=== PATIENT | female | born 1955 | race Caucasian/White ===

== ENCOUNTER 2019-04-16 07:24 | Day surgery (SDC) ==
--- NOTE | 2019-04-14 13:22 | EKG Report ---
Test Performed on : 04/14/2019 1:19:44 PM Test Reason : pre op Blood Pressure : / mmHG Vent. Rate : 069 BPM Atrial Rate : 069 BPM P-R Int : 144 ms QRS Dur : 068 ms QT Int : 388 ms P-R-T Axes : 066 057 053 degrees QTc Int : 415 ms Normal sinus rhythm. Septal infarct , age undetermined Abnormal ECG When compared with ECG of 03-APR-2012 17:56, Septal infarct is now present Confirmed by Jensen Patrick MD ([id number]) on 04/19/2019 9:28:20 PM
[2019-04-16] MEDS ORDERED: PEPCID ONE (07:46)
[2019-04-16] MEDS ORDERED: REGLAN ONE (07:46)
[2019-04-16] MEDS ORDERED: LR 1,000 ML ONE ×2 (07:46→15:37)
[2019-04-16] MEDS ORDERED: VANCOMYCIN 1 GM/NS 1 GM/250 ML IVPB ONE (07:46)
[2019-04-16] MEDS ORDERED: VERSED ONE ×2 (10:24→10:33)
[2019-04-16] MEDS ORDERED: XYLOCAINE-MPF 2% ONE ×2 (10:25→10:33)
[2019-04-16] MEDS ORDERED: NAROPIN 0.5% ONE (10:25)
[2019-04-16] MEDS ORDERED: SODIUM CHLORIDE 0.9% 0 ML ONE (10:32)
[2019-04-16] MEDS ORDERED: FENTANYL ONE (10:33)
[2019-04-16] MEDS ORDERED: DIPRIVAN 1% ONE (10:33)
[2019-04-16] MEDS ORDERED: ZOFRAN IV PRN (12:42)
--- NOTE | 2019-04-16 13:17 | OPERATIVE NOTE ---
PROCEDURE DATE: 04/16/2019 POSTOPERATIVE DIAGNOSES: 1. Right lateral malleolus fracture. 2. Right deltoid tear. POSTOPERATIVE DIAGNOSES: 1. Right lateral malleolus fracture. 2. Right deltoid tear. PROCEDURES: 1. Right open reduction and internal fixation of the lateral malleolus. 2. Right deltoid repair. SURGEON: Dr. Edin Bal. ENGLISH DIVISION CHAIR: Daily Ibrahim NP, who was an integral part of the case, helping with the puri portions of the case, helping to increase our OR efficiency greatly. ANESTHESIA: General with LMA and preoperative popliteal block. TOURNIQUET TIME: Around a little over an hour. IMPLANTS: Medline 09/11 tubular plate and screws. DISPOSITION: To PACU, hemodynamically stable. INDICATION FOR PROCEDURE: Ms Griffin is a 63-year-old female who fractured her ankle while on a cruise ship. It sounds like they did a closed reduction there. [place] got [place], she went to the ER where it sounds like they had to do another closed reduction. She came to me about a week out. Discussed with her about operative intervention. She expressed understanding and wished to proceed. DESCRIPTION OF PROCEDURE: Ms. Griffin was identified in the preoperative holding area. Right ankle was marked as the correct surgical site. She was then wheeled to the operating room and placed supine on the operating table. All bony prominences were well padded. She was induced under general anesthesia. LMA was placed. Tourniquet was placed to the right thigh. Splint was taken off. There were some fracture blisters on that medial side. They are pretty small though. No fracture blisters laterally. Right lower extremity then prepped with chlorhexidine, gluconate scrub and then ChloraPrep, and draped in normal sterile fashion. Surgical pause was performed. We identified the correct patient, correct side, and the correct procedure. Preop antibiotics were given. Esmarch was used to exsanguinate the right lower extremity and tourniquet was inflated to 300 mmHg. I started with a lateral incision. Dissection was carried down to the bone, exposing the fracture, which was short oblique with a posterior spike. There also was a comminuted piece anteriorly that had a little bit of joint surface on it as well. So we got everything reduced including that anterior fragment which was pretty small, but a significant portion. I used a lag screw in the main oblique fracture fragment which is aligned everything together really well and then used a posterior plate, 3 screws proximally and 1 locking screw in that distal fragment to help control rotation. I then put one 2/7th screw in that anterior fragment that was comminuted and actually held it together really well. I then came on the medial side, made an incision. Dissection was carried down. The deltoid was torn. It was more of an intrasubstance tear. We ended up using 1 JuggerKnot suture anchor and then some bony tunnels. I repaired the deep deltoid first and really got our stability and then repaired the superficial deltoid next. I then backed all that up with 0 Vicryl suture and she was very stable at this point. External rotation stress test showed that we had really good stability. Final images were taken. Everything was closed in a layered fashion, 0 Vicryl for the deep layer, 2-0 Vicryl for the subcutaneous and nylon on the skin. Adaptic, 4x4s, ABD, soft roll, and a posterior splint was applied. Tourniquet was let down. Patient had good capillary refill return to the toes. She was then wheeled from general anesthesia, moved to her own bed and taken to PACU in stable condition. PLAN: Postop she will be nonweightbearing to the right lower extremity and I will see her in a week in clinic. cc: Edin Bal MD
[2019-04-16] MEDS ORDERED: LANOXIN IV ONE (13:32)
[2019-04-16 14:01] LABS: MCH 28.9 PG (27-31); MCHC 31.1 g/dL (33-37); MPV 9.7 FL (7.4-10.4); RBC 4.84 XMIL (4.2-5.4); RDW 14.1 % (11.5-14.5); WBC 15.49 X1000 (4.8-10.8)
[2019-04-16 14:15] LABS: AGAP 13; BUN 20 mg/dL (8-22); CALCIUM 9.1 mg/dL (8.8-10.2); CHLORIDE 101 mmol/L (98-107); COSMO 280; CREATININE 0.8 mg/dL (0.5-0.9); ESTIMATED GFR > 60; GLUCOSE 103 mg/dL (70-104); MAGNESIUM 1.8 mg/dL (1.5-2.7); PHOSPHORUS 3.3 mg/dL (2.7-4.5); POTASSIUM 4.4 mmol/L (3.5-5.1); SODIUM 139 mmol/L (136-145); TCO2 25 mmol/L (25-35)
[2019-04-16] MEDS: CARDIZEM PO SCH ×2 (14:15→20:13)
--- NOTE | 2019-04-16 14:21 | EKG Report ---
Test Performed on : 04/16/2019 1:08:51 PM Test Reason : sudden onset afib Blood Pressure : / mmHG Vent. Rate : 131 BPM Atrial Rate : 131 BPM P-R Int : 000 ms QRS Dur : 074 ms QT Int : 314 ms P-R-T Axes : 000 028 -89 degrees QTc Int : 463 ms Atrial fibrillation. with rapid ventricular response. ST depression, consider subendocardial injury Nonspecific T wave abnormality Abnormal ECG When compared with ECG of 14-APR-2019 13:19, (Unconfirmed) Significant changes have occurred Confirmed by Jensen Patrick MD ([id number]) on 04/19/2019 9:32:02 PM
--- NOTE | 2019-04-16 14:26 | CARDIOLOGY CONSULTATION ---
DATE: 04/16/2019 HISTORY OF PRESENT ILLNESS: The patient is admitted and underwent surgery for a right foot ORIF. She had a right lateral malleolar fracture, right deltoid tear. The patient postoperatively went into atrial fibrillation. Cardiology was consulted. The patient has no history of atrial fibrillation. She has a history of hypertension, gastroesophageal reflux disease, a history of sleep apnea. She has been taking her medications regularly prior to this. No previous cardiac history. She does not complain of chest pain. She has not had any palpitations or diagnosis of atrial fibrillation prior to this. She has hypothyroidism. She has been taking her thyroid supplements. REVIEW OF SYSTEMS: A 14-point review of systems was done. GI System: There is no history of nausea, vomiting, or diarrhea. There is no history of hematemesis or melena. Central Nervous System: No focal weakness to suggest a recent CVA or TIA. System: There is no dysuria or hematuria. Respiratory System: There is no history of fevers, cough, or chills. PAST MEDICAL HISTORY: Hypertension, hypothyroidism, hyperlipidemia, gastroesophageal reflux disease, sleep apnea. PAST SURGICAL HISTORY: Cholecystectomy, hysterectomy. SOCIAL HISTORY: There is no history of alcohol abuse. She does not smoke. HOME MEDICATIONS: Include Cozaar 50 mg a day, montelukast 10 mg a day, pravastatin 20 mg a day, levothyroxine 50 mcg a day. ALLERGIES: Penicillin, Levaquin, cephalexin, Cymbalta. PHYSICAL EXAMINATION: Vital Signs: Blood pressure was 130/80, heart rate 130, atrial fibrillation. Jugular venous pressure was normal. First and second heart sounds were heard. There was no S3 gallop. Respiratory System: Normal air entry. There were no crepitations or rhonchi. Abdomen: Soft. Central Nervous System: Patient was postoperative, answering questions appropriately. She had a plaster postsurgery cast on her right foot. ASSESSMENT AND PLAN: Ms. Tatiana Griffin is a 63-year-old, lady with a history of hypertension, hypothyroidism, history of sleep apnea, and gastroesophageal reflux disease. Underwent surgery for a right malleolar fracture. Postoperatively, she was noted to be in atrial fibrillation. This is new and first time she has had this atrial fibrillation diagnosed. RECOMMENDATIONS: 1. We will give her digoxin 0.25 mg IV now and put her on Cardizem 60 mg 3 times a day. I suspect this is secondary to the stress of surgery. However, we will get a BMP, CBC, and thyroid profile as well. 2. We will get an echocardiogram to assess cardiac and valvular function in the morning. 3. She has hypothyroidism and is on Synthroid. Would recommend continuing with all her home medications including Synthroid. 4. Gastroesophageal reflux disease. She is on Prilosec. Thank you for the consult. cc: Roel Blue MD
[2019-04-16] MEDS ORDERED: LR 1,000 ML IV SCH (16:30)
--- NOTE | 2019-04-16 22:08 | HISTORY AND PHYSICAL ---
CHIEF COMPLAINT: Atrial fibrillation, after right ankle open reduction and internal fixation by Dr. Bal and also right deltoid repair. HISTORY OF PRESENT ILLNESS: She is a 63-year-old white female who had a fall while she was on cruise last Saturday, sustained injury to the right ankle fracture. She was seen at [facility] and subsequently seen by Dr. Bal who did the surgery, and postop the patient developed atrial fibrillation. No chest pain. No shortness of breath. Patient was seen by Dr. Blue. She had never had atrial fibrillation before. PAST MEDICAL HISTORY: 1. Metabolic syndrome. 2. Thoracic spine hemangioma T7. 3. Hyperlipidemia. 4. Hypertension. 5. Hyperuricemia. 6. Hypothyroidism. 7. Multiple benign subcutaneous lipomas. PAST SURGICAL HISTORY: Right breast biopsy surgery, cholecystectomy, soft tissue excision in the mid abdomen, hysterectomy. MEDICATIONS: Celebrex 200 mg daily, Synthroid 50 daily, losartan 50 daily, Robaxin as needed, pravastatin 20 daily and Tylenol #4. ALLERGIES: Reported to [facility] due to shortness of breath and heart problems, Keflex, Levaquin, Novocain, penicillin. SOCIAL HISTORY: Single, 2 children, living in [place], working in [employer]. No smoking. FAMILY HISTORY: Father at the age of 73 from heart failure. Mother is 84 years old. REVIEW OF SYSTEMS: HEENT: No headache. No vision problem. No earache. No sore throat. Neck: There is no goiter, no lymphadenopathy. No bruit. Cardiopulmonary: Palpitations. No chest pain. No shortness of breath. Gastrointestinal: No nausea, vomiting, abdominal pain. Extremities: Recently had a right ankle surgery. PHYSICAL EXAMINATION: VITAL SIGNS: Temperature is 98 degrees, pulse 97, blood pressure 114/47, 3 L nasal cannula 98%, 5 feet 7 inches, 222 pounds. HEENT: Atraumatic, normocephalic. Pupils equal, reactive to light. NECK: Supple. No lymphadenopathy. CHEST: Clear. HEART: Sounds are regular. ABDOMEN: Belly is soft, nontender. Good bowel sounds. NEUROLOGICAL: No obvious neurological deficits. INVESTIGATIONS: White cell count 15, hematocrit 45, platelets 233,000. SMA 7: Calcium, phosphorus, magnesium, TSH is normal. ASSESSMENT AND PLAN: 1. A 63-year-old white female admitted to the hospital for new onset of atrial fibrillation post surgery. I appreciate cardiology consult. The patient was given Lanoxin, started on Cardizem 60 q.8. Check the echocardiography. Repeat EKG in the morning. 2. Hypothyroidism on Synthroid 50 mcg daily. 3. Hyperlipidemia on pravastatin. 4. History of hypertension on losartan. We will hold. 5. Multiple subcutaneous lipomas, stable. 6. Chronic neck pain due to spondylosis under the care of Dr. Leblanc, taking Robaxin, Celebrex and Tylenol as needed. 7. Previous colonoscopy Dr. iKnsey and follow up . cc: Alvarez Moore MD MTDD
--- NOTE | 2019-04-17 00:20 | EKG Report ---
Test Performed on : 04/16/2019 11:46:56 PM Test Reason : afib - SB Blood Pressure : / mmHG Vent. Rate : 052 BPM Atrial Rate : 052 BPM P-R Int : 180 ms QRS Dur : 070 ms QT Int : 414 ms P-R-T Axes : 050 -21 -52 degrees QTc Int : 385 ms Sinus bradycardia. with marked sinus arrhythmia. Septal infarct , age undetermined T wave abnormality, consider anterior ischemia Abnormal ECG When compared with ECG of 16-APR-2019 13:08, (Unconfirmed) Sinus rhythm. has replaced Atrial fibrillation. Vent. rate has decreased BY [address] no longer depressed in Anterolateral leads T wave inversion now evident in Anterior leads Confirmed by Jensen Patrick MD ([id number]) on 04/19/2019 9:32:31 PM
[2019-04-17] MEDS: CARDIZEM PO SCH (06:12)
[2019-04-17] MEDS ORDERED: SYNTHROID PO SCH (07:00)
--- NOTE | 2019-04-17 07:12 | EKG Report ---
Test Performed on : 04/17/2019 06:32:38 AM Test Reason : afib Blood Pressure : / mmHG Vent. Rate : 052 BPM Atrial Rate : 052 BPM P-R Int : 160 ms QRS Dur : 074 ms QT Int : 410 ms P-R-T Axes : 037 002 054 degrees QTc Int : 381 ms Sinus bradycardia. Nonspecific T wave abnormality Abnormal ECG When compared with ECG of 16-APR-2019 23:46, (Unconfirmed) Criteria for Septal infarct are no longer present Nonspecific T wave abnormality has replaced inverted T waves in Anterior leads Confirmed by Jensen Patrick MD ([id number]) on 04/19/2019 9:32:47 PM
[2019-04-17] MEDS ORDERED: PRAVACHOL PO SCH (09:00)
[2019-04-17] MEDS ORDERED: CELEBREX PO SCH (09:00)
[2019-04-17] MEDS: PERCOCET-5 PO PRN ×2 (09:05→13:22)
[2019-04-17] MEDS ORDERED: CARDIZEM CD PO SCH (11:15)
[2019-04-17 11:25] VITALS: BP 120/61
--- NOTE | 2019-04-17 13:34 | ECHO REPORT ---
ORDER DATE: 04/17/2019 INTERPRETING PHYSICIAN: Dr. Roel Blue ECHOCARDIOGRAPHIC MEASUREMENTS: 1. Interventricular septum: 1.3 cm. 2. Posterior wall: 0.8 cm. 3. Diastolic diameter: 5.1 cm. 4. Left atrium: 3.1 cm. 5. Aortic root: 3 cm. SUMMARY OF THE 2-DIMENSIONAL IMAGIN. Aortic valve leaflets are trileaflet. 2. Mitral valve was normal. 3. Tricuspid valve was normal. 4. Pulmonic valve was normal. 5. There is mild mitral regurgitation. 6. Mild tricuspid regurgitation. Peak velocity across the tricuspid valve was 2.6 m/sec. 7. Pulmonary artery systolic pressure of 38 mmHg. 8. Peak velocity across the aortic valve less than 2 m/sec. There is no aortic stenosis. There is mild aortic regurgitation. 9. There is left atrial enlargement. 10. Optison was used to assess left ventricular systolic function. Normal left ventricular cavity size. 11. Mild left ventricular hypertrophy, asymmetric with an estimated ejection fraction of 65%. 12. There is no pericardial effusion or obvious intracardiac mass or thrombus seen. cc: MD Kristel Lee PA Jagan Reddy, MD
[2019-04-17] MEDS ORDERED: XARELTO PO SCH (17:00)
--- NOTE | 2019-04-20 11:31 | DISCHARGE SUMMARY ---
ADMISSION DATE: 04/16/2019 DISCHARGE DATE: 04/17/2019 DISCHARGING DIAGNOSIS: Paroxysmal atrial fibrillation. SECONDARY DIAGNOSES: 1. Metabolic syndrome. 2. Thoracic spine hemangioma, T7. 3. Hyperlipidemia. 4. Hypertension. 5. Hyperuricemia. 6. Hypothyroidism. 7. Multiple benign subcutaneous lipomas. 8. Open reduction and internal fixation of right ankle fracture. CONSULTS: Roel Blue MD BRIEF HISTORY: Please see the H and P that was done on 04/16/2019. In brief, she is a 63-year- old white female, was operated for right ankle fracture by Dr. Bal, and during recovery time patient developed rapid atrial fibrillation. The patient was admitted in [facility]. Patient was given Lanoxin, Cardizem. Followup she converted to sinus. She did not have any symptoms and signs of PE or heart attack. LABORATORIES: White cell count 15, hematocrit 45, platelets 233,000. TSH is normal. LFTs, cardiac enzymes were normal. Follow up EKG normal sinus nothing acute. The patient is asymptomatic. A 2D echocardiography findings are mild left ventricular hypertrophy, estimated EF 65%. No significant valvular heart disease seen. DISCHARGE INSTRUCTIONS: The patient was discharged home with the following instructions: 1. Celebrex 200 daily, Synthroid 50 mcg daily, pravastatin 20 daily, Cozaar 50 daily, Xarelto 10 mg daily, Cardizem 120 daily, Percocet as needed for pain. 2. The patient is going to see Dr. Bal for right ankle fracture and Dr. Blue the measurement technician. Follow up in my office in 6 weeks. She is also seeing the pain specialist in [place] for chronic neck pain. cc: MD Roel Ovalles MD
== END 2019-04-17 14:37 | disposition home or self-care (01) | DRG 983 ==
LOC: OR 07:24 → 3S 18:01 → OR 04-17 14:37
PROVIDERS: ATTEND Orthopaedic Surgery